=== PATIENT | male | born 1990 | race Caucasian/White ===

== ENCOUNTER 2018-10-28 08:01 | Emergency (ER) | payer SELFPAY ==
[~2018-10-28] VITALS: Ht 175.3 cm; Wt 104.5 kg
[2018-10-28 08:01] VITALS: BP 169/105
[2018-10-28] MEDS ORDERED: LIDOCAINE 2% W/EPIN INJ 20ML **PRES FREE INJ ONE (08:15)
[2018-10-28] MEDS ORDERED: IBUP80TA PO (08:36)
[2018-10-28] MEDS ORDERED: AMOX500C PO (08:36)
== END 2018-10-28 08:47 | disposition home or self-care (01) ==
LOC: M ED 08:01
DX: K02.9 Dental caries, unspecified (principal); K08.89 Other specified disorders of teeth and supporting structures; F17.200 Nicotine dependence, unspecified, uncomplicated